=== PATIENT | female | born 1960 | race Caucasian/White ===

== ENCOUNTER 2024-09-08 05:22 | Emergency (ER) | payer MEDICAID ==
[~2024-09-08] VITALS: Ht 160 cm; Wt 88.7 kg
[2024-09-08 05:40] VITALS: BP 116/86; PULSE 95; RESP 16; O2SAT 95
--- NOTE | 2024-09-08 06:50 | DVH ---
EXAM: XR Right Knee, 3 Views CLINICAL INDICATION: PAIN TECHNIQUE: Three views of the right knee. COMPARISON: None FINDINGS: BONES/JOINTS: Unremarkable. No acute fracture. No dislocation. SOFT TISSUES: Unremarkable. OTHER FINDINGS: . None. . IMPRESSION: No acute fracture.
[2024-09-08] MEDS ORDERED: ACETAMINOPHEN 325 MG TAB PO ONE (09:30)
[2024-09-08] MEDS ORDERED: KETOROLAC TROMETH 30 MG/ML 1ML VIAL IM ONE (09:30)
== END 2024-09-08 09:53 | disposition left against medical advice (07) ==
LOC: ER 05:22
DX: M25.561 Pain in right knee (principal); Z53.21 Procedure and treatment not carried out due to patient leaving prior to being seen by health care provider
CPT/HCPCS: 73562